=== PATIENT | female | born 1995 | race African-American/Black ===

== ENCOUNTER 2016-07-30 08:42 | Emergency (ER) | payer BC, MEDICAID ==
[~2016-07-30] VITALS: Ht 157.5 cm; Wt 54.2 kg
[2016-07-30] MEDS ORDERED: SODIUM CHLORIDE 0.9% 1,000 ML IV ONE (09:20)
[2016-07-30] MEDS ORDERED: ONDANSETRON 2MG/ML, 2ML IVPush ONE (09:30)
[2016-07-30] MEDS ORDERED: SODIUM CHLORIDE 0.9% 1,000ML IVBOLUS ONE (09:30)
[2016-07-30] MEDS ORDERED: HYDROmorphone 1 MG/ML, 1ML ONE ×2 (09:40→15:14)
[2016-07-30] MEDS ORDERED: ONDANSETRON 2MG/ML, 2ML ONE (09:40)
[2016-07-30] MEDS: HYDROmorphone 1 MG/ML, 1ML IVPush PRN ×2 (09:45→15:19)
[2016-07-30 09:52] LABS: ASPARTATE AMINO TRANSFERASE 15 U/L (15-37); BLOOD UREA NITROGEN 12 mg/dL (7-18)
[2016-07-30] MEDS ORDERED: NS + 40MEQ KCL 1,000 ML IV ONE ×2 (10:30→11:41)
[2016-07-30] MEDS ORDERED: POTASSIUM CHLORIDE 20 MEQ TAB.ER.PRT PO ONE (11:00)
[2016-07-30] MEDS ORDERED: NS + 20MEQ KCL 1,000 ML IV ONE (11:30)
[2016-07-30] MEDS ORDERED: POTASSIUM CHLORIDE 20 MEQ TAB.ER.PRT ONE (11:30)
[2016-07-30 16:20] VITALS: BP 113/60
== END 2016-07-30 16:25 | disposition home or self-care (01) ==
LOC: ED 09:09
DX: O26.891 Other specified pregnancy related conditions, first trimester (principal); R10.9 Unspecified abdominal pain; E87.6 Hypokalemia
CPT/HCPCS: 36415; 76801; 80053; 81001; 83690; 84702; 84703; 85025; 87077; 87086; 87186; 96361; 96374; 96375; 96376; 99285; J1170; J2405; J3480; J7030

== ENCOUNTER 2016-08-10 16:30 | Emergency (ER) | payer MEDICAID ==
[~2016-08-10] VITALS: Ht 160 cm; Wt 51.8 kg
[2016-08-10] MEDS ORDERED: SODIUM CHLORIDE 0.9% 1,000ML IVBOLUS ONE (17:00)
[2016-08-10] MEDS ORDERED: SODIUM CHLORIDE FLUSH 10ML SYR IVF ONE (17:00)
[2016-08-10] MEDS ORDERED: ONDANSETRON 2MG/ML, 2ML IVPush ONE ×2 (17:00→18:00)
[2016-08-10 17:06] LABS: HEMOGLOBIN 15.7 g/dL (11.7-16.4)
[2016-08-10 17:16] LABS: BLOOD UREA NITROGEN 9 mg/dL (7-18)
[2016-08-10] MEDS ORDERED: SODIUM CHLORIDE 0.9%, 500ML IVBOLUS ONE (18:00)
[2016-08-10] MEDS ORDERED: POTASSIUM CHLORIDE 20 MEQ TAB.ER.PRT PO ONE (18:00)
[2016-08-10] MEDS ORDERED: ONDANSETRON 2MG/ML, 2ML ONE (18:24)
[2016-08-10] MEDS ORDERED: ACETAMINOPHEN 325 MG TABLET PO ONE (19:00)
[2016-08-10] MEDS ORDERED: POTASSIUM CHLORIDE 20 MEQ TAB.ER.PRT ONE (19:26)
[2016-08-10] MEDS ORDERED: ACETAMINOPHEN 325 MG TABLET ONE (19:26)
[2016-08-10 19:31] VITALS: BP 108/73
== END 2016-08-10 19:58 | disposition home or self-care (01) ==
LOC: ED 19:52
DX: O21.0 Mild hyperemesis gravidarum (principal); Z3A.01 Less than 8 weeks gestation of pregnancy; Z87.891 Personal history of nicotine dependence
CPT/HCPCS: 36415; 80048; 82040; 84702; 85025; 96361; 96374; 99284; J2405; J7040